=== PATIENT | male | born 1965 | race Caucasian/White ===

== ENCOUNTER → 2018-04-24 | Day surgery (SDC) | payer BC | END | disposition home or self-care (01) | LOC: JRADIR 12:06 | PROVIDERS: ATTEND Internal Medicine | PROC: 02HV33Z Insertion of Infusion Device into Superior Vena Cava, Percutaneous Approach (ICD-10-PCS; principal; 2018-04-24) | PROC: B518ZZA Fluoroscopy of Superior Vena Cava, Guidance (ICD-10-PCS; 2018-04-24) | DX: M86.9 Osteomyelitis, unspecified (principal); Z79.2 Long term (current) use of antibiotics | CPT/HCPCS: 36569; 77001-TC-FY; C1751 ==